=== PATIENT | female | born 1965 | race African-American/Black ===

== ENCOUNTER 2021-09-29 17:28 | Emergency (ER) | payer OTHER ==
[2021-09-29 17:39] VITALS: BP 154/81; PULSE 62; TEMP 98.3; BMI 27.4
[2021-09-29] MEDS ORDERED: KETOROLAC TROMETHAMINE 30 MG/1 ML VIAL IM ONE (17:41)
[2021-09-29] MEDS ORDERED: KETOROLAC TROMETHAMINE 30 MG/1 ML VIAL ONE (17:46)
== END 2021-09-29 17:54 | disposition home or self-care (01) ==
LOC: FER 17:28
PROC: 3E0233Z Introduction of Anti-inflammatory into Muscle, Percutaneous Approach (ICD-10-PCS; principal; 2021-09-29)
DX: M79.10 Myalgia, unspecified site (principal); V49.40XA Driver injured in collision with unspecified motor vehicles in traffic accident, initial encounter
CPT/HCPCS: 99284-25